=== PATIENT | female | born 1965 | race Caucasian/White ===

== ENCOUNTER 2019-07-16 21:37 | Emergency (ER) | payer BC ==
[2019-07-16] MEDS ORDERED: Tetan/Diph/Pertus SYR(Tdap)* 0.5 ML SYR(BOOSTRIX) use SYR contains LATEX IM ONE ×2 (21:38→21:58)
--- OUTSIDE RECORDS SUMMARY | 2019-07-16 21:49 | XMS REPORT | Continuity of Care Document ---
:1965 Author Organization [facility] Address [address], [place] [id number] Phone Care Team Providers Name Role Phone Loli Cunningham PA-C Unavailable Unavailable Allergies, Adverse Reactions, Alerts Substance Reaction Status No Known Drug Allergies Active Medications Medication Instructions Dosage Effective Dates Status Comments (start - stop) amlodipine 2.5 mg take 1 Tablet by 2.5 MG - Active tablet oral route every day ibuprofen 200 mg Cap takes 2 tabs qd - Active simvastatin 40 mg take 1 tablet by 40 MG - Active tablet oral route every day in the evening multivitamin Tab take 1 tablet by - Active oral route every day with food amlodipine 2.5 mg take 1 Tablet by 2.5 MG - No Longer tablet oral route every Active day Problems Condition Effective Dates (start Clinical Status Comments - stop) Raynaud's syndrome without gangrene Raynaud's syndrome without gangrene Raynaud's syndrome without gangrene Raynaud's syndrome without gangrene Pain in unspecified foot Raynaud's syndrome without gangrene Raynaud's syndrome without gangrene Raynaud's syndrome without gangrene Raynaud's syndrome without gangrene Raynaud's syndrome without gangrene Raynaud's disease - Active Mapped from [employer] Chronic Conditions table on 09/02/2014 by the ICD9 to SNOMED Bulk Mapping Utility. The mapped diagnosis code was Raynaud's Syndrome, 443.0, added by Stefano Peter MD, with responsible provider Stefano Peter MD. Onset date 04/10/2012; last addressed on 10/08/2013. Procedures Procedure Date OFFICE/OUTPATIENT VISIT, EST Results Test Name Date and Time Measure Units Reference Range Abnormal Flag Status Comments No information Advance Directives Directive Yes / No Effective Date File Name No information Encounters Encounter Practice Location Reason(s) Diagnoses Date Provider Providers Description For Visit Copied on Encounter OFFICE/OUTPAT Arthritis Arthritis Raynaud's [facility]na[facility] [place] Referring IENT VISIT, Health Health Syndrome syndrome 8 PA-C Provider: BRIJESH Dean (chief without 9 [facility] complaint) gangrene [address], [address] [place] [facility], [place], [place], [id number], [id number], [place], [address]. [place] tel:[phone] tel:[phone] tel:[phone] Arthritis Arthritis Raynaud's [place] Referring Health Health syndrome PA-C Provider: Dianne Dean without 9 [facility] gangrene [facility], [address] [place] [facility], [place], [place], [place], [place], [place], [id number], [id number], [place], [address]. [place] tel:[phone] tel:[phone] tel:[phone] Arthritis Arthritis Raynaud's [place] Referring Health Health syndrome 9 PA-C Provider: Dianne Dean without 8 [facility] gangrene [facility], [address] [place] [facility], [place], [place], [place], [place], [place], [id number], [id number], [place], [address]. [place] tel:[phone] tel:[phone] tel:[phone] Arthritis Arthritis Raynaud's Apr-1 [place] Referring Health Health syndrome 0-201 PA-C Provider: Dianne Dean without 8 [facility] gangrenePain [address] [facility], 5 [place], [place], [place], [place], [place], [place], [place], [id number], [id number], [place], [address]. [place] tel: tel:[phone] tel:[phone] Arthritis Arthritis Raynaud's Mar- [place] Referring Health Health syndrome 0- PA-C Provider: Dianne Dean without 7 [facility] gangrene [facility], [address] [place], [place], [place], [place], [place], [place], [place], [id number], [id number], [place], [address]. [place] tel: tel:[phone] tel:[phone] Arthritis Arthritis Raynaud's Apr- [place] Referring Health Health syndrome 8 PA-C Provider: Dianne Dean without 7 [facility] gangrene [address] [facility], [address] [place], [place], [place], [place], [place], [place], [id number], [id number], [place], [address]. [place] tel: tel:[phone] tel:[phone] Arthritis Arthritis Raynaud's Oct- [place] Referring Health Health syndrome 1-201 PA-C Provider: Dianne Dean without 6 [facility] gangrene [address] [facility], [address] [place], [place], [place], [place], [place], [place], [place], [place], [id number], [id number], [place], [address]. [place]. tel:[phone] tel:[phone] tel:[phone] Arthritis Arthritis Raynaud's Apr-1 Brittani ZUNIGA Referring [facility] syndrome 2-201 Stefano. Provider: Dianne Dean without 6 [facility] gangrene [facility], 5 [place], [place], [facility], [place], [place], [place], [id number], [place], [id number], [address]. [place] tel:[phone] tel:[phone] tel:[phone] Arthritis Arthritis Raynaud's Oct-2 [facility] Referring [facility] syndrome 1-201 PA-C Provider: Dianne Dean without 5 [facility] gangrene [address], 5 [facility], [facility], [place], [place], [place], [place], [place], [id number], [id number], [place], [address]. [place] tel:[phone] tel:[phone] tel:[phone] Arthritis Arthritis Luigi-0 [facility] Referring [facility] Health 7-201 PA-C Provider: Dianne Dean 5 [facility] [address], 5 [place], [place], [facility], [place], [place], [place], [place], [place], [id number], [id number], [place], [address]. [place]. tel:[phone] tel:[phone] tel:[phone] Arthritis Arthritis Apr-3 [place] Referring [facility] Health 0-201 PA-C Luis E. Provider: Dianne Dean 3 [facility], [facility], 5 [facility], [place], [place], [place], [place], [id number], [place], [id number], . [place], [address]. [place] tel:[phone] tel:[phone] tel:[phone] Arthritis Arthritis Brittani ZUNIGA Referring [facility] 6 [place]. Provider: [facility], [facility], 5 [facility], [place], [place], [place], [place], [id number], [place], [id number], . [place], [address]. [place] tel:[phone] tel:[phone] tel:[phone] Arthritis Arthritis Brittani ZUNIGA Referring [facility] [place]. Provider: [facility], [address] [facility], 5 [facility], [place], [place], [place], [place], [id number], [place], [id number], . [place], [address]. [place] tel:[phone] tel:[phone] tel:[phone] Family History Family Member Diagnosis Age At Onset Uncle Grandmother Aunt Father Immunizations Vaccine Date Status Comments Yet to receive Flu vaccine administered Source: Other Provider Influenza virus vaccine, administered Source: Other Provider Injection Yet to receive administered Source: Other Provider patient unaware administered Source: Source Unspecified Payers Payer name Insurance type Covered alliance party ID Authorization(s) [facility] [id number] Social History Type Description Quantity Date Captured Comments Alcohol Use Details beer & wine 2 drinks weekly Caffeine Use Details No Tobacco Use Status Never smoked tobacco Smoking Status Never smoker Non-Smoking Tobacco : No Details Available : No Details Available 2018 Use Details Sex Female Vital Signs Date / Height Weight BMI Pulse Blood Temperature Respiratory Body Head BMI Pulse Inhaled Time: Rate Pressure Rate Surface Circumference percentile Ox Ox Area 63.00 252.00 44.6 132/84 -2019 in lbs 4 mm[Hg] 3:19 kg/m PM eter (2) Chief Complaint And Reason For Visit Most recent encounter only, dated '04/02/2019 15:20'. Raynaud's Syndrome (chief complaint). Description: Patient is positive for Raynaud&#39 ;s. Pain scale is rated a 3/10. Patient is experiencing generalized morning stiffness for 10 Minutes. Reason For Referral Reason For Referral No information Plan Of Treatment Date Type Action Status Appointment Amy Lopez BOOKED History Of Present Illness Encounter Date Complaint History Of Present Illness Raynaud's Syndrome Patient is positive for Raynaud's. Pain scale is rated a 3/10. Patient is experiencing generalized morning stiffness for 10 Minutes. Functional Status Date Functional Assessment No information Medications Administered Medication Instructions Dosage Effective Dates (start - stop) Status Comments No information Instructions Date Instruction Additional Information Risks/benefits of medications reviewed
--- OUTSIDE RECORDS SUMMARY | 2019-07-16 21:49 | XMS REPORT | Continuity of Care Document ---
:1965 External Reference #:[id number] Author Name Neto Macias M.D. (transmitted by agent of provider Ana M White) Address [address] [place] [address] Care Team Providers Name Role Phone Drew Hurtado M.D. - Family Medicine Care Team Information [employer] Problems Description No Information Available Social History Type Date Description Comments Sex Unknown Tobacco Use Start: Unknown Never Smoked Cigarettes ETOH Use Current Alcohol Use - 1-3 Days A Week. Recreational Drug Use Never Used Drugs Allergies, Adverse Reactions, Alerts Description No Known Drug Allergies Medications Active Medications SIG Qnty Indications Ordering Provider Date Amlodipine Besylate 1 by mouth every Unknown 2.5mg day Tablets Rosuvastatin Calcium Unknown 40mg Tablets Immunizations Description No Information Available Vital Signs Date Vital Result Comment 05/22/2019 9:33am Weight 254.00 lb Height 63 inches 5'3" BMI (Body Mass Index) 45.0 kg/m2 BP Systolic 134 mmHg BP Diastolic 84 mmHg Heart Rate 77 /min O2 % BldC Oximetry 97 % Body Temperature 97.2 F Pain Level 0 Results Description No Information Available Procedures Description No Information Available Medical Devices Description No Information Available Encounters Description No Information Available Assessments Description No Information Available Plan of Treatment No Information Available Functional Status Description No Information Available Mental Status Description No Information Available Referrals Description No Information Available
--- NOTE | 2019-07-16 21:53 | UC ---
Skin Complaint HPI - HPI Summary HPI Summary: 53 yo female presents with RIGHT index finger laceration. She tells me that earlier this evening she was doing duct work and accidentally sliced her finger on a piece of metal. She washed the area and bandaged with a bandaid but is still bleeding intermittently. States last tetanus was >5 years ago - History of Current Complaint Time Seen by Provider: 07/16/19 21:52 Stated Complaint: RIGHT POINTER FINGER LACERATION Onset/Duration: Sudden Onset Onset Severity: Mild Current Severity: Mild Pain Intensity: 2 Pain Scale Used: 0-10 Numeric - Allergy/Home Medications Allergies/Adverse Reactions: Allergies Allergy/AdvReac Type Severity Reaction Status Date / Time No Known Allergies Allergy Verified 07/16/19 21:49 Home Medications: Home Medications Ibuprofen TAB* [Advil TAB*] 400 mg PO DAILY 07/16/19 [History Confirmed 07/16/19 ] Rosuvastatin Calcium [Crestor] 40 mg PO DAILY 07/16/19 [History Confirmed ] amLODIPine TAB* [Norvasc 5 mg TAB*] 2.5 mg PO DAILY 07/16/19 [History Confirmed 07/16/19] PMH/Surg Hx/FS Hx/Imm Hx Endocrine History: Dyslipidemia Cardiovascular History: Hypertension Review of Systems All Other Systems Reviewed And Are Negative: No Constitutional: Positive: Negative Skin: Positive: Other - Finger laceration Respiratory: Positive: Negative Cardiovascular: Positive: Negative Neurological: Positive: Negative Psychological: Positive: Negative Physical Exam - Summary Physical Exam Summary: GENERAL: NAD. WDWN. No pain distress. SKIN: RIGHT index finger: distal radial aspect with 5mm skin-flap like laceration. Well approximated at rest. Does not involve joint. No bleeding. CHEST: No accessory muscle use. Breathing comfortably and in no distress. CV: Pulses intact. Cap refill <2seconds NEURO: Alert. PSYCH: Age appropriate behavior. Triage Information Reviewed: Yes Vital Signs: Vital Signs: Temp Pulse Resp BP Pulse Ox 97.7 F 81 18 146/85 99 07/16/19 21:52 07/16/19 21:52 07/16/19 21:52 07/16/19 21:52 07/16/19 21:52 Vital Signs Reviewed: Yes Laceration Repair - Laceration Repair 1 Description: Linear Laceration Size After Repair: Length (cm) - 0.5 Modified For Repair: No Cleansing Completed Via Routine Prep: Yes Closure Material: Skin Adhesive Closure Method: Single Layer Suture Of: Skin Course/Dx - Course Course Of Treatment: Wound well approximated at rest. Cleansed with saline. Dermabond and band-aid applied. tdap updated today - Diagnoses Provider Diagnosis: Finger laceration Discharge ED - Sign-Out/Discharge Documenting (check all that apply): Patient Departure All imaging exams completed and their final reports reviewed: No Studies - Discharge Plan Condition: Stable Disposition: HOME Patient Education Materials: Skin Adhesive Care (ED) Referrals: Drew Hurtado MD [Primary Care Provider] - Additional Instructions: If you develop a fever, shortness of breath, chest pain, new or worsening symptoms - please call your PCP or go to the ED immediately. Your blood pressure was high at todays visit. Please see your primary provider within 4 weeks for recheck and re-evaluation. Change the band-aid daily until well healed - Billing Disposition and Condition Condition: STABLE Disposition: Home
[2019-07-16 21:58] VITALS: BP 146/85
== END 2019-07-16 22:16 | disposition home or self-care (01) ==
LOC: UCCORT 21:37
DX: S61.210A Laceration without foreign body of right index finger without damage to nail, initial encounter (principal); I10 Essential (primary) hypertension; E78.5 Hyperlipidemia, unspecified; Z79.899 Other long term (current) drug therapy; W26.8XXA Contact with other sharp object(s), not elsewhere classified, initial encounter; Y92.9 Unspecified place or not applicable
CPT/HCPCS: 12001; 90471; 90715; 99201; G0463